=== PATIENT | male | born 1970 | race Caucasian/White ===

== ENCOUNTER 2019-09-21 18:21 | Emergency (ER) | payer BC ==
[~2019-09-21] VITALS: Ht 170.2 cm; Wt 93.2 kg
[2019-09-21 18:28] VITALS: BP 143/82
[2019-09-21 19:47] VITALS: PULSE 84; TEMP 98
== END 2019-09-21 19:47 | disposition home or self-care (01) ==
LOC: COL.ER 18:21
DX: M79.661 Pain in right lower leg (principal)

== ENCOUNTER → 2019-09-21 | Outpatient (CLI) | payer BC ==
[~2019-09-21] MED LIST: COUMADIN 22.5 MG/TAB PO; MVI PO; TESSALON PERLE100 MG PO
== END ==
LOC: ZCOL.LAB 13:02
DX: M79.604 Pain in right leg (principal)